=== PATIENT | male | born 1930 | race Caucasian/White ===

== ENCOUNTER → 2016-10-15 | Outpatient (CLI) | payer OTHER ==
[~2016-10-15] MED LIST: CEPH-375 PO; GENT5DRO4 RIGHTEYE; HYDR-3240 PO; HYDR12.53 PO; HYDR25TA6 PO; INSU100C SQ-INSULIN; INSU100V8 SQ; LISI-170 PO; LISI5TAB7 PO; METF500T4 PO; OMEP-110 PO; OMNIPAQUE 350 MG/ML, 100ML BOTTLE ONE; SIMV10TA3 PO; SIMV20TA3 PO; SIMV40TA3 PO; SIMV5TAB5 PO; SULF1TAB24 PO
== END | disposition home or self-care (01) ==
LOC: CFH 09:57
PROVIDERS: ATTEND Radiology Radiation Oncology
DX: C07 Malignant neoplasm of parotid gland (principal); M85.80 Other specified disorders of bone density and structure, unspecified site; I25.10 Atherosclerotic heart disease of native coronary artery without angina pectoris; M25.78 Osteophyte, vertebrae; R91.1 Solitary pulmonary nodule; Z90.49 Acquired absence of other specified parts of digestive tract
CPT/HCPCS: 70491; 71260; 82565; Q9967

== ENCOUNTER → 2016-10-30 | Outpatient (CLI) | payer OTHER ==
[~2016-10-30] MED LIST changes: -OMNIPAQUE 350 MG/ML, 100ML BOTTLE ONE
== END | disposition home or self-care (01) ==
LOC: ROC 14:43
PROVIDERS: ATTEND Radiology Radiation Oncology
DX: C07 Malignant neoplasm of parotid gland (principal); K11.7 Disturbances of salivary secretion; Z90.49 Acquired absence of other specified parts of digestive tract; Z92.3 Personal history of irradiation
CPT/HCPCS: 99213; G0463

== ENCOUNTER 2017-02-12 09:33 | Emergency (ER) | payer OTHER ==
[~2017-02-12] VITALS: Ht 170.2 cm; Wt 82.0 kg
[2017-02-12] MEDS ORDERED: SODIUM CHLORIDE FLUSH 10ML SYR IVF ONE (10:00)
[2017-02-12 10:46] LABS: BLOOD UREA NITROGEN 19 mg/dL (7-18)
[2017-02-12 10:51] LABS: IS PT STATUS REG ER OR PRE ER? YES
[2017-02-12 11:32] VITALS: BP 175/86
== END 2017-02-12 11:34 | disposition home or self-care (01) ==
LOC: ED 10:33
DX: I10 Essential (primary) hypertension (principal)
CPT/HCPCS: 36415; 70450; 80048; 82040; 84484; 85025; 93005; 99285

== ENCOUNTER → 2017-03-11 | Outpatient (CLI) | payer OTHER ==
[~2017-03-11] MED LIST changes: +OMNIPAQUE 350 MG/ML, 150 ML BOTTLE ONE
== END | disposition home or self-care (01) ==
LOC: CFH 12:58
PROVIDERS: ATTEND Radiology Radiation Oncology
DX: C78.01 Secondary malignant neoplasm of right lung (principal); C07 Malignant neoplasm of parotid gland; I25.10 Atherosclerotic heart disease of native coronary artery without angina pectoris; I10 Essential (primary) hypertension; E11.9 Type 2 diabetes mellitus without complications; R91.8 Other nonspecific abnormal finding of lung field; Z90.49 Acquired absence of other specified parts of digestive tract
CPT/HCPCS: 70491; 71260; Q9967

== ENCOUNTER → 2017-06-30 | Outpatient (CLI) | payer OTHER ==
[~2017-06-30] MED LIST changes: -OMNIPAQUE 350 MG/ML, 150 ML BOTTLE ONE
== END | disposition home or self-care (01) ==
LOC: ROC 12:52
PROVIDERS: ATTEND Radiology Radiation Oncology
DX: C07 Malignant neoplasm of parotid gland (principal)
CPT/HCPCS: 99213; G0463

== ENCOUNTER 2017-07-30 13:46 | Observation (INO) | payer OTHER ==
[~2017-07-30] VITALS: Ht 177.8 cm; Wt 80.9 kg
[2017-07-30] MEDS ORDERED: ONDANSETRON 2MG/ML, 2ML IVPush ONE (14:00)
[2017-07-30] MEDS ORDERED: HYDROmorphone 1 MG/ML, 1ML IVPush PRN (14:00)
[2017-07-30] MEDS ORDERED: SODIUM CHLORIDE FLUSH 10ML SYR IVF ONE (14:00)
[2017-07-30] MEDS ORDERED: PLEASE ENTER HEIGHT AND WEIGHT MC SCH (14:00)
[2017-07-30] MEDS ORDERED: ONDANSETRON 2MG/ML, 2ML ONE (14:56)
[2017-07-30] MEDS ORDERED: HYDROmorphone 2 MG/ML, 1ML ONE (14:56)
[2017-07-30 16:27] LABS: BASOPHILS # (AUTO) 0.04 x10^3/uL (0-0.1); BASOPHILS % (AUTO) 0 % (0-1); EOSINOPHILS # (AUTO) 0.11 x10^3/uL (0-0.4); EOSINOPHILS % (AUTO) 1 % (1-7); LYMPHOCYTES % (AUTO) 10 % (22-44); MD NO; MEAN CORPUSCULAR HEMOGLOBIN 29.8 pg (27.5-34.5); MEAN CORPUSCULAR HGB CONC 33.1 g/dL (33.2-36.2); MEAN CORPUSCULAR VOLUME 90.2 fL (81-97); MEAN PLATELET VOLUME 7.7 fL (7.4-10.4); MONOCYTES # (AUTO) 0.65 x10^3/uL (0.2-0.8); MONOCYTES % (AUTO) 8 % (2-9); NEUTROPHILS # (AUTO) 6.76 x10^3/uL (1.8-6.8); NEUTROPHILS % (AUTO) 81 % (42-75); PLATELET COUNT 427 x10^3/uL (130-400)
[2017-07-30 16:40] LABS: ALBUMIN 3.4 g/dL (3.4-5.0); ANION GAP 7 mmol/L (5-15); CALCIUM 8.9 mg/dL (8.5-10.1); CHLORIDE 105 mmol/L (98-107); CREATININE 1.03 mg/dL (0.7-1.3)
[2017-07-30] MEDS ORDERED: SODIUM CHLORIDE FLUSH 10ML SYR IVF PRN (17:30)
[2017-07-30] MEDS: INSULIN DETEMIR 100 UNITS/ML, PEN SQ-INSULIN SCH ×2 (18:00→21:00)
[2017-07-30] MEDS ORDERED: ONDANSETRON 2MG/ML, 2ML IVPush PRN (18:00)
[2017-07-30] MEDS ORDERED: METHOCARBAMOL 750 MG TABLET PO PRN (18:00)
[2017-07-30] MEDS ORDERED: ACETAMINOPHEN 325 MG TABLET PO PRN (18:00)
[2017-07-30] MEDS: HEPARIN 5,000 UNITS/ML, 1ML SQ SCH (18:00)
[2017-07-30 18:55] LABS: HEMOGLOBIN A1C 8.2 % (4.2-6.3)
[2017-07-30] MEDS: INSULIN REGULAR 100 UNITS/ML, 3ML VIAL SQ-INSULIN SCH ×2 (19:00→21:00)
[2017-07-30] MEDS ORDERED: HEPARIN 5,000 UNITS/ML, 1ML ONE (20:00)
[2017-07-30] MEDS ORDERED: INSULIN REGULAR 100 UNITS/ML, 3ML VIAL ONE (20:01)
[2017-07-30 21:46] VITALS: BP 182/99
[2017-07-30 22:11] LABS: MICROSCOPIC AUTO
[2017-07-30 22:15] LABS: CULTURE INDICATED? NO
[2017-07-30] MEDS ORDERED: hydrALAzine 20 MG/ML, 1ML IV PRN (22:30)
[2017-07-30] MEDS: SIMVASTATIN 40 MG TABLET PO SCH (23:10)
[2017-07-30] MEDS: SODIUM CHLORIDE FLUSH 10ML SYR IVF SCH (23:10)
[2017-07-30 23:15] VITALS: BP 125/68
[2017-07-30] MEDS: OXYcodone IR 5MG TABLET PO PRN (23:19)
[2017-07-31] MEDS: KETOROLAC 30 MG/1 ML IVPush PRN ×2 (01:28→12:50)
[2017-07-31] MEDS: HEPARIN 5,000 UNITS/ML, 1ML SQ SCH ×4 (02:00→21:23)
[2017-07-31 04:15] VITALS: BP 137/73
[2017-07-31] MEDS: OXYcodone IR 5MG TABLET PO PRN ×3 (05:26→19:55)
[2017-07-31 08:45] VITALS: BP 175/80
[2017-07-31] MEDS: LISINOPRIL 20 MG TABLET PO SCH (08:48)
[2017-07-31] MEDS: SENNA/DOCUSATE TABLET PO SCH (08:48)
[2017-07-31] MEDS: INSULIN REGULAR 100 UNITS/ML, 3ML VIAL SQ-INSULIN SCH ×4 (08:49→20:13)
[2017-07-31] MEDS: SODIUM CHLORIDE FLUSH 10ML SYR IVF SCH ×2 (08:49→20:13)
[2017-07-31 10:00] VITALS: BP 140/76
[2017-07-31 14:37] VITALS: BP 159/80
[2017-07-31 19:35] VITALS: BP 150/74
[2017-07-31] MEDS: SIMVASTATIN 40 MG TABLET PO SCH (20:13)
[2017-07-31] MEDS: INSULIN DETEMIR 100 UNITS/ML, PEN SQ-INSULIN SCH (20:14)
[2017-07-31] MEDS: OMEPRAZOLE 20 MG CAPSULE.DR PO SCH (21:23)
[2017-08-01 01:06] VITALS: BP 151/78
[2017-08-01] MEDS: KETOROLAC 30 MG/1 ML IVPush PRN (01:08)
[2017-08-01 01:24] VITALS: BP 157/82
[2017-08-01] MEDS: HEPARIN 5,000 UNITS/ML, 1ML SQ SCH ×3 (05:02→20:48)
[2017-08-01] MEDS: BISACODYL 10 MG SUPP PR PRN (05:02)
[2017-08-01] MEDS: INSULIN REGULAR 100 UNITS/ML, 3ML VIAL SQ-INSULIN SCH ×4 (08:33→21:46)
[2017-08-01] MEDS: LISINOPRIL 20 MG TABLET PO SCH ×2 (08:33→15:38)
[2017-08-01] MEDS: SENNA/DOCUSATE TABLET PO SCH (08:33)
[2017-08-01] MEDS: OXYcodone IR 5MG TABLET PO PRN (08:33)
[2017-08-01] MEDS: SODIUM CHLORIDE FLUSH 10ML SYR IVF SCH ×2 (08:33→20:47)
[2017-08-01 08:39] VITALS: BP 167/77
[2017-08-01 14:00] VITALS: BP 170/99
[2017-08-01] MEDS ORDERED: ERGOCALCIFEROL 50,000 UNIT CAPSULE PO SCH (15:00)
[2017-08-01] MEDS: GABAPENTIN 300 MG CAPSULE PO SCH ×2 (15:38→20:48)
[2017-08-01] MEDS: POLYETHYLENE GLYCOL 17 GM PACKET PO PRN (15:38)
[2017-08-01] MEDS: OXYcodone/APAP 5/325MG TABLET PO SCH ×2 (15:38→23:51)
[2017-08-01 19:41] VITALS: BP 151/76
[2017-08-01] MEDS: OMEPRAZOLE 20 MG CAPSULE.DR PO SCH (20:48)
[2017-08-01] MEDS: SIMVASTATIN 40 MG TABLET PO SCH (20:48)
[2017-08-01] MEDS: INSULIN DETEMIR 100 UNITS/ML, PEN SQ-INSULIN SCH (21:47)
[2017-08-02 03:27] VITALS: BP 156/72
[2017-08-02] MEDS: HEPARIN 5,000 UNITS/ML, 1ML SQ SCH ×3 (05:33→21:31)
[2017-08-02 08:00] VITALS: BP 152/86
[2017-08-02] MEDS: OMEPRAZOLE 20 MG CAPSULE.DR PO SCH (08:00)
[2017-08-02] MEDS: INSULIN REGULAR 100 UNITS/ML, 3ML VIAL SQ-INSULIN SCH ×4 (08:00→21:39)
[2017-08-02] MEDS: GABAPENTIN 300 MG CAPSULE PO SCH ×3 (08:00→21:30)
[2017-08-02] MEDS: SENNA/DOCUSATE TABLET PO SCH (08:00)
[2017-08-02] MEDS: LISINOPRIL 20 MG TABLET PO SCH (08:01)
[2017-08-02] MEDS: OXYcodone/APAP 5/325MG TABLET PO SCH ×3 (08:02→23:03)
[2017-08-02] MEDS: SODIUM CHLORIDE FLUSH 10ML SYR IVF SCH ×2 (08:02→21:30)
[2017-08-02] MEDS ORDERED: MAGNESIUM CITRATE 300ML ORAL SOL PO ONE (12:00)
[2017-08-02] MEDS: METHOCARBAMOL 750 MG TABLET PO SCH ×3 (12:30→21:30)
[2017-08-02] MEDS ORDERED: methylPREDNISolone 4mg DOSE PACK PO SCH (12:30)
[2017-08-02 20:00] VITALS: BP 152/75
[2017-08-02] MEDS: SIMVASTATIN 40 MG TABLET PO SCH (21:30)
[2017-08-02] MEDS: INSULIN DETEMIR 100 UNITS/ML, PEN SQ-INSULIN SCH (21:38)
[2017-08-03 02:00] VITALS: BP 144/82
[2017-08-03] MEDS: GABAPENTIN 300 MG CAPSULE PO SCH ×4 (05:27→20:31)
[2017-08-03] MEDS: HEPARIN 5,000 UNITS/ML, 1ML SQ SCH ×3 (05:27→20:28)
[2017-08-03] MEDS: OXYcodone/APAP 5/325MG TABLET PO SCH ×2 (06:38→16:27)
[2017-08-03] MEDS: INSULIN REGULAR 100 UNITS/ML, 3ML VIAL SQ-INSULIN SCH ×4 (08:51→20:27)
[2017-08-03] MEDS: SODIUM CHLORIDE FLUSH 10ML SYR IVF SCH ×2 (08:52→20:28)
[2017-08-03] MEDS: OMEPRAZOLE 20 MG CAPSULE.DR PO SCH (08:52)
[2017-08-03] MEDS: METHOCARBAMOL 750 MG TABLET PO SCH ×3 (08:52→20:31)
[2017-08-03] MEDS: SENNA/DOCUSATE TABLET PO SCH (08:53)
[2017-08-03] MEDS: LISINOPRIL 20 MG TABLET PO SCH (08:53)
[2017-08-03 09:00] VITALS: BP 135/72
[2017-08-03] MEDS: BISACODYL 10 MG SUPP PR PRN (14:06)
[2017-08-03 14:39] VITALS: BP 119/72
[2017-08-03 20:00] VITALS: BP 130/70
[2017-08-03] MEDS: INSULIN DETEMIR 100 UNITS/ML, PEN SQ-INSULIN SCH (20:27)
[2017-08-03] MEDS: SIMVASTATIN 40 MG TABLET PO SCH (20:32)
[2017-08-04] MEDS: OXYcodone/APAP 5/325MG TABLET PO SCH ×4 (00:11→23:16)
[2017-08-04 02:00] VITALS: BP 131/74
[2017-08-04] MEDS: GABAPENTIN 300 MG CAPSULE PO SCH ×4 (05:37→19:58)
[2017-08-04] MEDS: HEPARIN 5,000 UNITS/ML, 1ML SQ SCH ×3 (05:37→20:00)
[2017-08-04 06:55] VITALS: BP 128/78
[2017-08-04] MEDS: INSULIN REGULAR 100 UNITS/ML, 3ML VIAL SQ-INSULIN SCH ×4 (08:33→20:00)
[2017-08-04] MEDS: SODIUM CHLORIDE FLUSH 10ML SYR IVF SCH ×2 (08:35→19:58)
[2017-08-04] MEDS: OMEPRAZOLE 20 MG CAPSULE.DR PO SCH (08:35)
[2017-08-04] MEDS: METHOCARBAMOL 750 MG TABLET PO SCH ×3 (08:35→19:58)
[2017-08-04] MEDS: LISINOPRIL 20 MG TABLET PO SCH (08:35)
[2017-08-04] MEDS: SENNA/DOCUSATE TABLET PO SCH (08:36)
[2017-08-04] MEDS ORDERED: OXYC5TAB3 PO (12:08)
[2017-08-04] MEDS ORDERED: SENN1TAB7 PO (12:08)
[2017-08-04] MEDS ORDERED: METH4TAB6 PO (12:08)
[2017-08-04] MEDS ORDERED: GABA300C10 PO (12:08)
[2017-08-04] MEDS ORDERED: METH750T2 PO (12:08)
[2017-08-04] MEDS ORDERED: POLY17PO5 PO (12:08)
[2017-08-04] MEDS ORDERED: ERGO500017 PO (12:08)
[2017-08-04] MEDS ORDERED: OXYC1TAB7 PO (12:08)
[2017-08-04] MEDS ORDERED: LISI-170 PO (12:08)
[2017-08-04 13:33] VITALS: BP 107/62
[2017-08-04 19:07] VITALS: BP 121/70
[2017-08-04] MEDS: SIMVASTATIN 40 MG TABLET PO SCH (19:58)
[2017-08-04] MEDS: INSULIN DETEMIR 100 UNITS/ML, PEN SQ-INSULIN SCH (20:00)
[2017-08-04] MEDS: OXYcodone IR 5MG TABLET PO PRN (20:08)
[2017-08-05 02:55] VITALS: BP 171/90
[2017-08-05] MEDS: GABAPENTIN 300 MG CAPSULE PO SCH ×2 (04:54→12:24)
[2017-08-05] MEDS: HEPARIN 5,000 UNITS/ML, 1ML SQ SCH (04:54)
[2017-08-05] MEDS: POLYETHYLENE GLYCOL 17 GM PACKET PO PRN (04:54)
[2017-08-05 06:47] VITALS: BP 164/85
[2017-08-05] MEDS: OXYcodone/APAP 5/325MG TABLET PO SCH (08:39)
[2017-08-05] MEDS: LISINOPRIL 20 MG TABLET PO SCH (08:40)
[2017-08-05] MEDS: METHOCARBAMOL 750 MG TABLET PO SCH (08:40)
[2017-08-05] MEDS: SENNA/DOCUSATE TABLET PO SCH (08:40)
[2017-08-05] MEDS: INSULIN REGULAR 100 UNITS/ML, 3ML VIAL SQ-INSULIN SCH ×2 (08:40→12:24)
[2017-08-05] MEDS: OMEPRAZOLE 20 MG CAPSULE.DR PO SCH (08:40)
[2017-08-05] MEDS: SODIUM CHLORIDE FLUSH 10ML SYR IVF SCH (08:41)
== END 2017-08-05 15:07 | disposition home or self-care (01) ==
LOC: ED 16:24 → EDIP 17:23 → INTOOBSV 17:23 → 4EST 21:36 → 4WST 08-02 10:11
PROVIDERS: ADMIT Hospitalist; ATTEND Hospitalist
DX: M48.56XA Collapsed vertebra, not elsewhere classified, lumbar region, initial encounter for fracture (principal); E78.5 Hyperlipidemia, unspecified; I10 Essential (primary) hypertension; I95.89 Other hypotension; E11.65 Type 2 diabetes mellitus with hyperglycemia; C07 Malignant neoplasm of parotid gland; R29.810 Facial weakness; H02.401 Unspecified ptosis of right eyelid; M35.00 Sjogren syndrome, unspecified; E55.9 Vitamin D deficiency, unspecified; K59.09 Other constipation; Z79.4 Long term (current) use of insulin; Z83.3 Family history of diabetes mellitus; Z85.818 Personal history of malignant neoplasm of other sites of lip, oral cavity, and pharynx; Z96.651 Presence of right artificial knee joint; Z66 Do not resuscitate; Z90.49 Acquired absence of other specified parts of digestive tract
CPT/HCPCS: 36415; 72110; 72220; 80048; 81001; 82040; 82306; 82607; 82962; 83036; 85025; 96372; 96374; 96375; 96376; 97116; 97162; 97166; 97530; 97535; 99285; G0378; J1170; J1644; J1815; J1885; J2405; J7509

== ENCOUNTER → 2017-10-07 | Outpatient (CLI) | payer OTHER ==
[~2017-10-07] MED LIST changes: +ERGO500017 PO; +GABA300C10 PO; +METH4TAB6 PO; +METH750T2 PO; +OXYC1TAB7 PO; +OXYC5TAB3 PO; +POLY17PO5 PO; +SENN1TAB7 PO
== END ==
LOC: ROC 08:30
PROVIDERS: ATTEND Radiology Radiation Oncology
DX: Z02.9 Encounter for administrative examinations, unspecified (principal)